=== PATIENT | female | born 1985 | race Caucasian/White ===

== ENCOUNTER 2025-06-06 18:15 | Emergency (ER) | payer OTHER ==
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
[2025-06-06] MEDS: SODIUM CHLORIDE 0.9% 1,000 ML IV STA (19:06)
[2025-06-06] MEDS: LORazepam 1 MG/0.5 ML VIAL IV STA (19:06)
[2025-06-06 19:08] LABS: Basophils # (A) 0.02 10*3/uL (0.00-0.10); Basophils % (A) 0.2 %; Eosinophils # (A) 0.02 10*3/uL (0.04-0.35); Eosinophils % (A) 0.2 %; HCT 42.3 % (37.2-46.3); HGB 14.7 g/dL (12.0-15.0); Lymphocytes # (A) 1.35 10*3/uL (0.90-5.00); Lymphocytes % (A) 13.7 %; MCH 29.7 pg (27.0-32.0); MCHC 34.8 g/dL (32.0-37.0); MCV 85.5 fL (80.0-97.0); Monocytes # (A) 0.29 10*3/uL (0.20-1.00); Monocytes % (A) 2.9 %; Neutrophils # (A) 8.19 10*3/uL (1.80-7.70); Neutrophils % (A) 82.8 %; Platelet Count 349 10*3/uL (140-440); RBC 4.95 10*6/uL (4.10-5.20); RDW 13.0 % (11.5-14.5); WBC 9.89 10*3/uL (4.50-10.00)
[2025-06-06 19:13] LABS: ALT 40 U/L (4-34); AST 33 U/L (14-36); Acetaminophen <10.0 ug/mL; African American GFR (CKD) >90 (>60 ml/min/1.73 sqM); Albumin 4.2 g/dL (3.5-5.0); Alkaline Phosphatase 76 U/L (38-126); Anion Gap 11 mmol/L; Blood Urea Nitrogen 7 mg/dL (7-17); Calcium 9.9 mg/dL (8.4-10.2); Carbon Dioxide 22 mmol/L (22-30); Chloride 103 mmol/L (98-107); Glucose 109 mg/dL (74-99); Magnesium 1.9 mg/dL (1.6-2.3); Non-African American GFR(CKD) >90 (>60 ml/min/1.73 sqM); Potassium 3.9 mmol/L (3.5-5.1); Salicylate <1.0 mg/dL; Sodium 136 mmol/L (137-145); Total Protein 7.5 g/dL (6.3-8.2)
[2025-06-06 19:31] LABS: Bacteria,Urine Rare /hpf; Bilirubin,Urine Negative (Negative); Blood,Urine Negative (Negative); Color,Urine Colorless; Glucose,Urine (UA) Negative (Negative); Ketones,Urine Negative (Negative); Leukocyte Esterase,Urine Negative (Negative); Nitrite,Urine Negative (Negative); PH, Urine 7.5 (5.0-8.0); Protein,Urine Negative (Negative); RBC,Urine <1 /hpf (0-5); Specific Gravity,Urine 1.006 (1.001-1.035); Squamous Epithelial Cell,Urine 19 /hpf (0-4); Urobilinogen,Urine <2.0 mg/dL (<2.0); WBC,Urine 4 /hpf (0-5)
[2025-06-06 19:32] LABS: Barbiturate Screen,Urine Not Detected (NotDetected); Benzodiazepines Screen,Urine Detected (NotDetected); Opiate Screen,Urine Not Detected (NotDetected); Oxycodone Screen, Urine Not Detected (NotDetected); Phencyclidine Screen,Urine Not Detected (NotDetected); Tricyclic Antidepressant,Urine Not Detected (NotDetected); Urn Cannabinoid Scrn Detected (NotDetected)
--- NOTE | 2025-06-06 19:44 | CT ---
EXAMINATION TYPE: CT brain wo con CT DLP: 1117.4 mGycm, Automated exposure control for dose reduction was used. DATE OF EXAM: 06/06/2025 7:29 PM COMPARISON: None. CLINICAL INDICATION:Female, 39 years old with history of new seizures, Pt had seizure while at [facility] for [facility], lasted approx. 3 mins witnessed, no hx of seizures TECHNIQUE: Brain: Multiple axial CT images of the brain were obtained without IV contrast. . Coronal and sagitta l reformats reviewed. FINDINGS: Brain: Extra-axial spaces: No abnormal extra-axial fluid collections. Ventricular system: Within normal limits Cerebral parenchyma: No acute intraparenchymal hemorrhage or mass effect. The walters-white junction is well differentiated. Cerebellum: Unremarkable. Mass effect: No evidence of midline shift. Intracranial vasculature: unremarkable Soft tissues: Normal. Calvarium/osseous structures: No depressed skull fracture. Paranasal sinuses and mastoid air cells: Clear Visualized orbits: Orbital contents are intact. IMPRESSION: No acute intracranial process. [facility], , 06/06/2025 7:42 PM
[2025-06-06] MEDS: LORazepam 1 MG TAB PO STA (19:58)
[2025-06-06 20:01] VITALS: BP 127/69; PULSE 59; RESP 17; TEMP 97.9
== END 2025-06-06 20:16 | disposition home or self-care (01) ==
LOC: EC 18:15
DX: R56.9 Unspecified convulsions (principal); F13.10 Sedative, hypnotic or anxiolytic abuse, uncomplicated; F15.10 Other stimulant abuse, uncomplicated; F17.200 Nicotine dependence, unspecified, uncomplicated
CPT/HCPCS: 36415; 93005; 80053; 83735; 85025; 81001; 80306; 80143; 80179; 70450; 99285; 96374; 96361; G0480; J2060; 80320